=== PATIENT | male | born 2000 | race Caucasian/White ===

== ENCOUNTER 2022-04-12 08:21 | Emergency (ER) | payer OTHER, SELFPAY ==
[2022-04-12 08:39] VITALS: BP 152/82; PULSE 92; RESP 16; TEMP 36.9; O2SAT 98
--- NOTE | 2022-04-12 08:58 | ED.URI ---
HPI - URI/Sore Throat General Chief Complaint: Upper Respiratory Infection Stated Complaint: SOB, Chest Pressure Time Seen by Provider: 04/12/22 08:24 Source: patient and family (mother ) Mode of arrival: ambulatory Limitations: no limitations History of Present Illness HPI Narrative: 22-year-old male presents to [facility] with complaints of 5 month history of nasal congestion, coughing, sneezing, intermittent shortness of breath and chest tightness. Patient reports that he has history of asthma which she scored a outgrew at age 4-5. Patient reports that he did take Erin for 1 month but then quit taking it. Patient reports he has been taking [id number] [id number] with minimal relief. Patient is a smoker. Patient denies sick contacts. Patient denies recent travel. Patient denies nausea, vomiting, diarrhea, fever, body aches, chills or chest pains. MD elicited complaint: cough Onset (ago): month(s) (5) Able to tolerate fluids by mouth: Yes Treatments prior to arrival: other (allergy medications ) Related Data Allergies Allergy/AdvReac Type Severity Reaction Status Date / Time No Known Allergies Allergy Verified 04/12/22 08:58 Review of Systems Constitutional: Constitutional: Denies chills, Denies fatigue, Denies fever(s) and Denies weakness ENT: Denies epistaxis, Denies nasal congestion and Denies sore throat Cardiovascular: Cardiovascular: Denies chest pain and Denies slow heart rate Respiratory: Respiratory: Reports chest congestion, Reports cough and Reports dyspnea Gastrointestinal: Gastrointestinal: Denies abdominal pain, Denies diarrhea, Denies nausea and Denies vomiting Integumentary/Breasts: Skin/Breast: Denies rash Allergic/Immunologic: Allergic/Immunologic: Denies throat swelling, Denies tongue swelling and Denies wheezing PMFSH Social History Social History (Updated 04/12/22 @ 09:01 by Kim Canales, FERNANDO) Smoking status: Current some day smoker Tobacco type: cigarettes Comments At time of signature, I agree with nursing past medical, surgical, social and family history. There is no relevant family history pertinent to the presenting complaint. Exam Const: General: healthy appearing, no acute distress and alert Nutritional Appearance: well nourished Orientation/consciousness: patient oriented x3 Limitations: no limitations HENMT: Head: normal to inspection Ears: external ears normal and TM's normal bilaterally Face/Nose/Sinus: Normal external nose present and Normal nares present Face and sinus: normal facial exam and sinuses nontender Mouth: Yes moist mucous membranes Throat: posterior oropharynx normal and uvula midline Resp: Effort & Inspection: normal respiratory effort and not labored Auscultation: clear to auscultation bilaterally, no crackles, no rales, no rhonchi and no wheezes Cardio: Rate: regular rate Rhythm: regular rhythm Heart sounds: no murmurs Skin: General skin exam: normal color Rashes: no rashes Wounds: no wounds Neuro: General: patient oriented x3 and moves all extremities Speech: normal speech Gait exam (Neuro): Normal gait present Psych: Affect: normal affect Attitude: cooperative Course Course Level of Care: Express Care Visit Vital Signs Vital signs: Vital Signs Temperature 36.9 C 04/12/22 08:39 Pulse Rate 92 04/12/22 08:39 Respiratory Rate 16 04/12/22 08:39 Blood Pressure 152/82 H 04/12/22 08:39 Pulse Oximetry 98 04/12/22 08:39 Oxygen Delivery Room Air 04/12/22 08:39 Temperature 36.9 C 04/12/22 08:39 Pulse Rate 92 04/12/22 08:39 Respiratory Rate 16 04/12/22 08:39 Blood Pressure 152/82 H 04/12/22 08:39 Pulse Oximetry 98 04/12/22 08:39 Oxygen Delivery Room Air 04/12/22 08:39 MDM - URI/Sore Throat MDM Narrative Medical decision making narrative: Lengthy discussion with patient concerning importance of quitting smoking as he has underlying asthma. patient agrees to take medications
[2022-04-12 09:14] VITALS: BP 124/72
== END 2022-04-12 09:14 | disposition home or self-care (01) ==
PROVIDERS: Emergency Provider Nurse Practitioner Family
DX: J06.9 Acute upper respiratory infection, unspecified (principal); F17.210 Nicotine dependence, cigarettes, uncomplicated
CPT/HCPCS: 99213; G0463

== ENCOUNTER 2023-01-15 19:18 | Emergency (ER) | payer OTHER, SELFPAY ==
--- NOTE | ~2023-01-15 | CT_ITS ---
EXAMINATION: CT abdomen pelvis w con DATE: 01/15/2023 21:58 INDICATION: RLQ tenderness TECHNIQUE: Computed tomography (CT) of the abdomen and pelvis was performed with 100 mL Omnipaque-350 intravenous contrast. Automated exposure control and iterative reconstruction technique were employe d. The dose-length product was 804.39 mGy-cm. COMPARISON: None. FINDINGS: Lower thorax: Unremarkable Liver: Normal. Biliary/Gallbladder: Gallbladder is partially collapsed, without surrounding inflammatory change or w all thickening. No bile duct dilation. Pancreas: No mass or duct dilation. Spleen: Normal. Adrenals:No mass. Kidneys: No suspicious mass, obstructing stone, or hydronephrosis. GI tract: No small or large bowel dilation. Normal appendix. Mesentery/Peritoneum: No ascites, mass, or free air. Retroperitoneum: No mass. Pelvis: Pelvic organs are within normal limits. Soft Tissues: Soft tissues and body wall unremarkable. Bones: No acute osseous finding. IMPRESSION: No acute abdominopelvic process detected. Reviewed, dictated and finalized at location K.
[2023-01-15 19:29] VITALS: BP 151/88; PULSE 91; RESP 18; TEMP 37.1; O2SAT 100
--- NOTE | 2023-01-15 20:29 | ED.ABDPAIN ---
HPI - Abdominal Pain General Chief Complaint: Abdominal Pain Stated Complaint: abdominal pain Time Seen by Provider: 01/15/23 19:39 History of Present Illness HPI narrative: Patient is a 22-year-old male presenting with abdominal pain. Patient states that he has had right lower quadrant pain off and on for the last several days. States that sometimes it seems to radiate into his groin. He denies testicular pain or swelling. Reports possible constipation but no diarrhea. Reports intermittent nausea but no vomiting. States he is concerned about his appendix. No fevers or chills, chest pain, shortness of breath, cough, dysuria, hematuria, flank pain. Related Data Allergies Allergy/AdvReac Type Severity Reaction Status Date / Time No Known Allergies Allergy Verified 01/15/23 19:37 Review of Systems Review of Systems: All systems reviewed & are unremarkable except as noted in HPI and below PMFSH Social History Social History Smoking status: Current some day smoker Tobacco type: cigarettes Exam Narrative: GENERAL: Well-appearing, in no acute distress, pleasant and cooperative HEAD: Normocephalic, atraumatic. EYES: PERRLA and EOMI. ENT: Grossly unremarkable NECK: Supple. CHEST: Clear to auscultation. No respiratory distress. HEART: Regular rate and rhythm. ABDOMEN: Soft, + right lower quadrant tenderness, no guarding or rebound EXTREMITIES: Normal range of motion. No edema. SKIN: Warm, dry, no rash. NEURO: No focal deficits. Alert and oriented x3. PSYCH: Normal mood and affect. Course Vital Signs Vital signs: Vital Signs Temperature 98.7 F 01/15/23 19:29 Pulse Rate 91 01/15/23 19:29 Respiratory Rate 18 01/15/23 19:29 Blood Pressure 151/88 H 01/15/23 19:29 Pulse Oximetry 100 01/15/23 19:29 Oxygen Delivery Room Air 01/15/23 19:29 Temperature 98.7 F 01/15/23 19:29 Pulse Rate 81 01/15/23 21:21 Respiratory Rate 14 01/15/23 21:21 Blood Pressure 120/75 01/15/23 21:21 Pulse Oximetry 100 01/15/23 21:21 Oxygen Delivery Room Air 01/15/23 19:29 MDM - Abdominal Pain MDM Narrative Medical decision making narrative: Patient is a 22-year-old male presenting with right lower quadrant pain. Vitals are stable. Exam remarkable for the above. Plan for blood work, CT abdomen pelvis, Toradol, fluids. Blood work is unremarkable. UA is unremarkable. CT abdomen pelvis without acute abnormalities. Patient states that his pain is improved following the Toradol. Discussed the reassuring work-up. He feels comfortable going home. Advised that he follow-up with PCP. Appropriate return precautions given. Discharged in stable condition. Differential Diagnosis Differential diagnosis: Likely abdominal pain, acute appendicitis, calculus of kidney, constipation, diverticulitis, gastroenteritis and pancreatitis Medical Records Attestation: I reviewed the patient's medical records. Lab Data Attestation: I reviewed the patient's lab results. 01/15/23 20:49 01/15/23 20:49 Labs: Lab Results 01/15/23 Range/Units 20:49 WBC 8.6 (4.5-10.0) K/mm3 RBC 4.83 (4.6-6.20) M/mm3 Hgb 13.7 L (14.0-18.0) g/dL Hct 40.9 L (42.0-52.0) % MCV 84.7 (80-100) fl MCH 28.4 (26-34) pg MCHC 33.5 (32-36) g/dl RDW 12.8 (11.5-14.5) % Plt Count 239 (150-375) k/mm3 MPV 10.4 (7.4-10.4) fl Immature Gran % (Auto) 0.2 (0-0.5) % Neut % (Auto) 61.9 (45.5-73.1) % Lymph % (Auto) 28.9 (18.3-44.2) % [place] % (Auto) 6.9 (2.6-8.5) % Eos % (Auto) 1.6 (0-4.4) % Baso % (Auto) 0.5 (0.2-1.2) % Lymph # (Auto) 2.48 (0.9-3.2) K/mm3 [place] # (Auto) 0.6 (0.1-0.6) K/mm3 Eos # (Auto) 0.1 (0-0.3) K/mm3 Baso # (Auto) 0.0 (0.0-0.1) K/mm3 Abs Immat Gran (auto) 0.02 (0.00-0.031) K/mm3 Absolute Neuts (auto) 5.3 (1.3-6.7) K/mm3 Absolute Nucleated RBC 0.0 (0.0-0.012) K/mm3 Nucleated RBC
[2023-01-15 20:55] LABS: Basophils Percent Auto 0.5 % (0.2-1.2); Eosinophils Absolute Auto 0.1 K/mm3 (0-0.3); Eosinophils Percent Auto 1.6 % (0-4.4); Hematocrit 40.9 % (42.0-52.0); Hemoglobin 13.7 g/dL (14.0-18.0); Immature Granulocyte Absolute 0.02 K/mm3 (0.00-0.031); Immature Granulocyte Percent A 0.2 % (0-0.5); Lymphocytes Absolute Auto 2.48 K/mm3 (0.9-3.2); Lymphocytes Percent Auto 28.9 % (18.3-44.2); Mean Corpuscular HGB Conc 33.5 g/dl (32-36); Mean Corpuscular Hemoglobin 28.4 pg (26-34); Mean Corpuscular Volume 84.7 fl (80-100); Mean Platelet Volume 10.4 fl (7.4-10.4); Monocytes Absolute Auto 0.6 K/mm3 (0.1-0.6); Monocytes Percent Auto 6.9 % (2.6-8.5); Neutrophils Absolute Auto 5.3 K/mm3 (1.3-6.7); Neutrophils Percent Auto 61.9 % (45.5-73.1); Platelet Count Result 239 k/mm3 (150-375); Red Blood Count 4.83 M/mm3 (4.6-6.20); Red Cell Distribution Width 12.8 % (11.5-14.5); White Blood Count 8.6 K/mm3 (4.5-10.0)
[2023-01-15 20:59] LABS: Appearance Urine Clear (Clear); Bacteria Urine None Seen /hpf; Bilirubin Urine Negative (Negative); Blood Urine Trace (Negative); Color Urine Yellow (Yellow); Glucose Urine UA Negative (Negative); Ketones Urine Negative (Negative); Leukocyte Esterase Ur Negative LEU/UL (Negative); Nitrate Urine Negative (Negative); Non Pathogenic Casts 0-2; Protein Urine Negative (Negative); Specific Grav Ur 1.012 (1.001-1.035); Squamous Epithelial Cell Urine None seen /hpf (Few); WBC Urine 0-5 /hpf; pH Urine 7.5 (5.0-9.0)
[2023-01-15 21:02] LABS: Add Urine Microscopic? YES
[2023-01-15 21:10] LABS: Alanine Aminotransferase 15 U/L (6-50); Albumin Level 4.1 g/dL (3.5-5.1); Alkaline Phosphatase 51 U/L (38-126); Anion Gap 7 mmol/L (8-16); Aspartate Amino Transferase 23 U/L (17-59); Bilirubin,Total 0.4 mg/dL (0.2-1.3); Blood Urea Nitrogen 12 mg/dL (9-20); Calcium 8.7 mg/dL (8.4-10.2); Carbon Dioxide 25 mmol/L (22-30); Chloride 105 mmol/L (98-107); Estimated CRCL calculation 122 ml/min; Estimated Glomerular Filt Rate > 60; Glucose 100 mg/dL (65-110); Lipase 77 U/L (23-300); Sodium 137 mmol/L (137-145)
[2023-01-15] MEDS: SODIUM CHLORIDE 0.9% IV 1,000 ML 999 ML IV CONT (21:20)
[2023-01-15] MEDS: KETOROLAC 30 MG/ML VIAL (*BKC) IV PUSH (21:20)
[2023-01-15 21:21] VITALS: BP 120/75; PULSE 81; RESP 14; O2SAT 100
== END 2023-01-15 23:51 | disposition home or self-care (01) ==
PROVIDERS: Emergency Provider Emergency Medicine
DX: R10.31 Right lower quadrant pain (principal); F17.210 Nicotine dependence, cigarettes, uncomplicated
CPT/HCPCS: 36415; 74177; 80053; 81001; 83690; 85025; 96361; 96374; 99284; J1885; J7030; Q9967